=== PATIENT | male | born 1960 | race African-American/Black ===

== ENCOUNTER 2019-09-28 06:12 | Emergency (ER) | payer MEDICAID, OTHER ==
[~2019-09-28] VITALS: Ht 182.9 cm; Wt 118.0 kg
[~2019-09-28 06:12] MED LIST: GLIP5TAB12; LISI10TA5
[2019-09-28 06:15] VITALS: BP 154/107
== END 2019-09-28 07:57 | disposition left against medical advice (07) ==
LOC: ER 06:34
DX: Z53.21 Procedure and treatment not carried out due to patient leaving prior to being seen by health care provider (principal); E11.9 Type 2 diabetes mellitus without complications
CPT/HCPCS: 93005

== ENCOUNTER 2022-01-06 07:05 | Inpatient (IN) | payer MEDICAID, OTHER ==
[~2022-01-06] VITALS: Ht 180.3 cm; Wt 123.0 kg
[~2022-01-06 07:05] MED LIST changes: +LISI10TA26; -LISI10TA5
[2022-01-06] MEDS ORDERED: FUROSEMIDE 40MG/4ML VIAL IVP ONE (08:30)
[2022-01-06 09:05] LABS: BASOPHILS % 0.2 % (0.0-2.0); EOSINOPHILS % 0.9 % (0.0-5.0); HEMATOCRIT. 40.9 % (42.0-52.0); HEMOGLOBIN. 13.3 g/dL (14.0-18.0); LYMPHOCYTES % 24.9 % (20.0-50.0); MEAN CORPUSCULAR HEMOGLOBIN 31.1 pg (28.0-32.0); MEAN CORPUSCULAR VOLUME 95.6 fL (80.0-94.0); MEAN PLATELET VOLUME 9.4 fl (7.4-10.4); MONOCYTES % 13.7 % (2.0-8.0); NEUTROPHILS % 60.3 % (40.0-76.0); PLATELET 224 x1000/uL (130-400); RED BLOOD CELL COUNT 4.28 mill/uL (4.7-6.1); RED CELL DISTRIBUTION WIDTH 16.6 % (11.6-14.6)
[2022-01-06 09:13] LABS: INR 1.1; PROTHROMBIN TIME 11.5 sec (9.6-11.0)
[2022-01-06 09:17] LABS: CHLORIDE 103 mEq/L (98-107)
[2022-01-06] MEDS ORDERED: LISINOPRIL 10MG TABLET PO ONE (09:30)
[2022-01-06] MEDS ORDERED: ASPIRIN 325MG TABLET PO ONE (09:45)
[2022-01-06] MEDS ORDERED: HEPARIN 25,000 UNITS PREMIX 250 ML IV ONE (09:45)
[2022-01-06] MEDS ORDERED: HEPARIN 5000 UNITS/ML VIAL IV ONE (09:45)
[2022-01-06] MEDS ORDERED: NITROGLYCERIN 0.4MG TABLET SL SL PRN (09:45)
[2022-01-06] MEDS ORDERED: HEPARIN BOLUS PRN aPTT 30-44 IV (10:45)
[2022-01-06] MEDS ORDERED: HEPARIN BOLUS PRN aPTT <30 IV (10:45)
[2022-01-06] MEDS ORDERED: HEPARIN 25,000 UNITS PREMIX 250 ML IV SCH (10:45)
[2022-01-06 14:55] VITALS: BP 146/102
[2022-01-06 15:00] VITALS: BP 146/102
[2022-01-06] MEDS ORDERED: CLOP-31 PO (15:17)
[2022-01-06] MEDS ORDERED: FURO-151 PO (15:17)
[2022-01-06] MEDS ORDERED: ATOR10TA PO (15:17)
[2022-01-06] MEDS ORDERED: POTA-202 MT ×2 (15:17→15:19)
[2022-01-06] MEDS ORDERED: DEXTROSE 50% WATER 50ML SYRINGE IV PRN ×2 (15:45→20:00)
[2022-01-06] MEDS ORDERED: INFLUENZA VACCINE 05/PF 0.5 ML SYRINGE IM ONE (16:15)
[2022-01-06 16:30] VITALS: BP 129/84
[2022-01-06] MEDS: INSULIN LISPRO 100 UNITS/ML SUBCUT SCH ×2 (17:00→21:44)
[2022-01-06] MEDS: BLOOD SUGAR DIAGNOSTIC STRIP TEST SCH ×2 (17:00→21:45)
[2022-01-06] MEDS: FUROSEMIDE 40MG/4ML VIAL IVP SCH (17:50)
[2022-01-06 20:00] VITALS: BP 132/80
[2022-01-06] MEDS ORDERED: MAGNESIUM/ALUMINUM HYDROXIDE/SIMETHICONE 30ML UDC PO PRN (20:00)
[2022-01-06] MEDS ORDERED: ACETAMINOPHEN 325MG TABLET PO PRN (20:00)
[2022-01-06] MEDS ORDERED: ONDANSETRON HCL 4MG/2ML INJ IV PRN (20:00)
[2022-01-06] MEDS ORDERED: BLOOD SUGAR DIAGNOSTIC STRIP TEST SCH (21:00)
[2022-01-06] MEDS: ENOXAPARIN 30MG/0.3ML SYR SUBCUT SCH (21:43)
[2022-01-06] MEDS: CARVEDILOL 6.25 MG TABLET PO SCH (21:45)
[2022-01-06 23:20] LABS: CLARITY URINE CLEAR (CLEAR); COLOR URINE YELLOW (YELLOW); KETONES URINE NEGATIVE (NEGATIVE); LEUKOCYTE ESTERASE URINE NEGATIVE (NEGATIVE); NITRITE URINE NEGATIVE (NEGATIVE); OCCULT BLOOD URINE 2+ (NEGATIVE); PH URINE 5.5 (4.5-8.0); PROTEIN URINE 2+ (NEGATIVE); SPECIFIC GRAVITY URINE 1.012 (1.005-1.030)
[2022-01-06 23:44] LABS: *AMPHETAMINES SCREEN URINE NEGATIVE (NEGATIVE); *BARBITURATES SCREEN URINE NEGATIVE (NEGATIVE); *BENZODIAZEPINES SCREEN URINE NEGATIVE (NEGATIVE); *COCAINE SCREEN URINE NEGATIVE (NEGATIVE); CANNABINOID URINE SCREEN NEGATIVE (NEGATIVE); METHADONE URINE SCREEN NEGATIVE (NEGATIVE); OPIATES URINE SCREEN NEGATIVE (NEGATIVE); PHENCYCLIDINE URINE SCREEN NEGATIVE (NEGATIVE)
[2022-01-07] VITALS: BP 107/69
[2022-01-07] MEDS: ZOLPIDEM TARTRATE 5MG TABLET PO PRN (01:48)
[2022-01-07 04:00] VITALS: BP 124/74
[2022-01-07] MEDS: FUROSEMIDE 40MG/4ML VIAL IVP SCH ×2 (06:21→17:47)
[2022-01-07] MEDS: BLOOD SUGAR DIAGNOSTIC STRIP TEST SCH ×4 (06:28→21:05)
[2022-01-07] MEDS: INSULIN LISPRO 100 UNITS/ML SUBCUT SCH ×4 (06:29→21:14)
[2022-01-07 08:00] VITALS: BP 142/91
[2022-01-07 08:28] LABS: BASOPHILS % 0.3 % (0.0-2.0); EOSINOPHILS % 1.3 % (0.0-5.0); HEMATOCRIT. 40.1 % (42.0-52.0); HEMOGLOBIN. 13.2 g/dL (14.0-18.0); LYMPHOCYTES % 27.7 % (20.0-50.0); MEAN CORPUSCULAR VOLUME 94.4 fL (80.0-94.0); MEAN PLATELET VOLUME 9.1 fl (7.4-10.4); MONOCYTES % 14.8 % (2.0-8.0); NEUTROPHILS % 55.9 % (40.0-76.0); PLATELET 224 x1000/uL (130-400); RED BLOOD CELL COUNT 4.25 mill/uL (4.7-6.1); RED CELL DISTRIBUTION WIDTH 16.5 % (11.6-14.6)
[2022-01-07 08:45] LABS: CHLORIDE 102 mEq/L (98-107)
[2022-01-07 09:04] LABS: HDL CHOLESTEROL 60 mg/dL (40-59); LDL CHOLESTEROL 80 mg/dL (5-100); PHOSPHORUS 3.9 mg/dL (2.5-4.9); T4 FREE 1.53 ng/dL (0.76-1.46)
[2022-01-07] MEDS: CLOPIDOGREL 75MG TABLET PO SCH (09:21)
[2022-01-07] MEDS: ENOXAPARIN 30MG/0.3ML SYR SUBCUT SCH ×2 (09:21→21:18)
[2022-01-07] MEDS: CARVEDILOL 6.25 MG TABLET PO SCH ×2 (09:21→21:00)
[2022-01-07 12:30] VITALS: BP 155/104
[2022-01-07 16:30] VITALS: BP 126/96
[2022-01-07] MEDS: LISINOPRIL 2.5MG TABLET PO SCH (17:47)
[2022-01-07 20:00] VITALS: BP 110/65
[2022-01-08] VITALS: BP 121/75
[2022-01-08] MEDS: ZOLPIDEM TARTRATE 5MG TABLET PO PRN ×2 (00:04→21:46)
[2022-01-08 04:00] VITALS: BP 123/84
[2022-01-08] MEDS: FUROSEMIDE 40MG/4ML VIAL IVP SCH ×2 (06:41→17:49)
[2022-01-08] MEDS: INSULIN LISPRO 100 UNITS/ML SUBCUT SCH ×4 (06:46→21:40)
[2022-01-08 07:26] LABS: HEMATOCRIT. 36.8 % (42.0-52.0); HEMOGLOBIN. 12.1 g/dL (14.0-18.0); MEAN PLATELET VOLUME 9.2 fl (7.4-10.4); PLATELET 227 x1000/uL (130-400); RED BLOOD CELL COUNT 3.91 mill/uL (4.7-6.1); RED CELL DISTRIBUTION WIDTH 16.4 % (11.6-14.6)
[2022-01-08] MEDS: BLOOD SUGAR DIAGNOSTIC STRIP TEST SCH ×4 (07:26→21:40)
[2022-01-08 08:00] VITALS: BP 128/78
[2022-01-08 09:04] LABS: PLATELET ESTIMATE NORMAL
[2022-01-08] MEDS: LISINOPRIL 2.5MG TABLET PO SCH (09:04)
[2022-01-08] MEDS: CARVEDILOL 6.25 MG TABLET PO SCH ×2 (09:04→21:39)
[2022-01-08] MEDS: CLOPIDOGREL 75MG TABLET PO SCH ×2 (09:04→13:19)
[2022-01-08] MEDS: ENOXAPARIN 30MG/0.3ML SYR SUBCUT SCH ×2 (09:05→21:39)
[2022-01-08 09:34] LABS: CHLORIDE 101 mEq/L (98-107)
[2022-01-08 10:01] LABS: PHOSPHORUS 3.9 mg/dL (2.5-4.9)
[2022-01-08 12:00] VITALS: BP 137/90
[2022-01-08 16:30] VITALS: BP 136/73
[2022-01-08 20:00] VITALS: BP 132/82
[2022-01-09] VITALS: BP 128/77
[2022-01-09 04:00] VITALS: BP 122/81
[2022-01-09] MEDS: BLOOD SUGAR DIAGNOSTIC STRIP TEST SCH ×2 (06:12→11:27)
[2022-01-09] MEDS: INSULIN LISPRO 100 UNITS/ML SUBCUT SCH ×2 (06:12→12:28)
[2022-01-09] MEDS: FUROSEMIDE 40MG/4ML VIAL IVP SCH (06:12)
[2022-01-09 08:00] VITALS: BP 126/79
[2022-01-09] MEDS: CLOPIDOGREL 75MG TABLET PO SCH (08:19)
[2022-01-09] MEDS: CARVEDILOL 6.25 MG TABLET PO SCH (08:19)
[2022-01-09] MEDS: ENOXAPARIN 30MG/0.3ML SYR SUBCUT SCH (08:25)
[2022-01-09] MEDS ORDERED: LISINOPRIL 2.5MG TABLET PO SCH (09:00)
[2022-01-09 10:10] VITALS: BP 126/79
[2022-01-09 12:00] VITALS: BP 121/68
== END 2022-01-09 15:00 | disposition home or self-care (01) | DRG 198 ==
LOC: ER 07:05 → 8WST 11:17 → EDBEDREQTM 11:19 → EDBEDREQ 11:19 → EDBEDREQTM 11:22 → ENRESERV 11:59 → 8WST 14:28
PROVIDERS: ADMIT Internal Medicine; ATTEND Internal Medicine
DX: I25.10 Atherosclerotic heart disease of native coronary artery without angina pectoris (principal); I50.43 Acute on chronic combined systolic (congestive) and diastolic (congestive) heart failure; I42.9 Cardiomyopathy, unspecified; I50.9 Heart failure, unspecified; I11.0 Hypertensive heart disease with heart failure; R07.89 Other chest pain; E11.9 Type 2 diabetes mellitus without complications; F17.210 Nicotine dependence, cigarettes, uncomplicated; J44.9 Chronic obstructive pulmonary disease, unspecified; R74.01 Elevation of levels of liver transaminase levels; E66.01 Morbid (severe) obesity due to excess calories; K80.20 Calculus of gallbladder without cholecystitis without obstruction; I34.0 Nonrheumatic mitral (valve) insufficiency; Z86.16 Personal history of COVID-19; Z95.5 Presence of coronary angioplasty implant and graft; I25.2 Old myocardial infarction
CPT/HCPCS: 36415; 71045; 76700; 80048; 80053; 80061; 80076; 80305; 81003; 82962; 83036; 83735; 83880; 84100; 84439; 84443; 84484; 85025; 93005; 93306; 93923; 93970; 97162; 99291; J1644; J1650; J1815; J1940

== ENCOUNTER 2022-04-12 23:35 | Inpatient (IN) | payer MEDICAID ==
[~2022-04-12] VITALS: Ht 185.4 cm; Wt 125.6 kg
[~2022-04-12 23:35] MED LIST changes: +ATOR10TA PO; +CLOP-31 PO; +FURO-151 PO; +POTA-202 MT
[2022-04-13] MEDS ORDERED: ASPIRIN 81MG TABLET PO ONE (01:00)
[2022-04-13] MEDS ORDERED: FUROSEMIDE 40MG/4ML VIAL IV ONE (01:00)
[2022-04-13] MEDS ORDERED: NITROGLYCERIN OINT 1GM/INCH UDPKT TD ONE (01:00)
[2022-04-13 01:42] LABS: BASOPHILS % 0.4 % (0.0-2.0); EOSINOPHILS % 0.4 % (0.0-5.0); HEMATOCRIT. 36.3 % (42.0-52.0); HEMOGLOBIN. 11.5 g/dL (14.0-18.0); LYMPHOCYTES % 12.9 % (20.0-50.0); MEAN CORPUSCULAR VOLUME 82.2 fL (80.0-94.0); MEAN PLATELET VOLUME 8.4 fl (7.4-10.4); MONOCYTES % 13.6 % (2.0-8.0); NEUTROPHILS % 72.7 % (40.0-76.0); PLATELET 336 x1000/uL (130-400); RED BLOOD CELL COUNT 4.42 mill/uL (4.7-6.1); RED CELL DISTRIBUTION WIDTH 19.8 % (11.6-14.6)
[2022-04-13 02:40] LABS: CHLORIDE 101 mEq/L (98-107)
[2022-04-13 20:20] VITALS: BP 150/93
[2022-04-13] MEDS ORDERED: TIOT18CA3 IH (22:24)
[2022-04-13] MEDS ORDERED: ASPI-1406 PO (22:24)
[2022-04-13] MEDS ORDERED: SACU1TAB PO (22:24)
[2022-04-13] MEDS ORDERED: FURO40TA5 PO (22:24)
[2022-04-13] MEDS ORDERED: ATOR40TA70 PO (22:24)
[2022-04-13] MEDS ORDERED: METF-416 PO (22:24)
[2022-04-13] MEDS ORDERED: CARV6.2548 PO (22:24)
[2022-04-13] MEDS ORDERED: CLOP75TA33 PO (22:24)
[2022-04-13] MEDS ORDERED: CLONIDINE 0.1MG TABLET PO PRN (22:30)
[2022-04-13] MEDS ORDERED: ACETAMINOPHEN 325MG TABLET PO PRN (22:30)
[2022-04-13] MEDS ORDERED: ONDANSETRON HCL 4MG/2ML INJ IV PRN (22:30)
[2022-04-13] MEDS ORDERED: HYDROCODONE/ACETAMINOPHEN 5/325MG TABLET PO PRN (22:30)
[2022-04-13] MEDS ORDERED: DEXTROSE 50% WATER 50ML SYRINGE IV PRN (22:30)
[2022-04-13] MEDS ORDERED: NALOXONE HCL 0.4MG/ML VIAL IV PRN (23:00)
[2022-04-14] VITALS: BP 145/94
[2022-04-14 04:00] VITALS: BP 122/72
[2022-04-14 05:55] LABS: HEMATOCRIT. 29.6 % (42.0-52.0); HEMOGLOBIN. 9.5 g/dL (14.0-18.0); MEAN CORPUSCULAR HEMOGLOBIN 26.3 pg (28.0-32.0); MEAN CORPUSCULAR VOLUME 82.5 fL (80.0-94.0); MEAN PLATELET VOLUME 8.1 fl (7.4-10.4); PLATELET 275 x1000/uL (130-400); RED BLOOD CELL COUNT 3.59 mill/uL (4.7-6.1); RED CELL DISTRIBUTION WIDTH 19.1 % (11.6-14.6)
[2022-04-14] MEDS ORDERED: FUROSEMIDE 40MG/4ML VIAL IVP SCH (06:00)
[2022-04-14] MEDS: HYDRALAZINE HCL 50MG TABLET PO SCH ×3 (06:36→20:51)
[2022-04-14] MEDS: BLOOD SUGAR DIAGNOSTIC STRIP TEST SCH ×4 (07:02→20:51)
[2022-04-14 08:00] VITALS: BP 158/101
[2022-04-14] MEDS: INSULIN LISPRO 100 UNITS/ML SUBCUT SCH ×4 (08:20→20:59)
[2022-04-14 08:34] LABS: CHLORIDE 102 mEq/L (98-107)
[2022-04-14] MEDS: ATORVASTATIN CALCIUM 40MG TABLET PO SCH (08:58)
[2022-04-14] MEDS: CLOPIDOGREL 75MG TABLET PO SCH (08:58)
[2022-04-14] MEDS: CARVEDILOL 6.25 MG TABLET PO SCH ×2 (08:58→20:51)
[2022-04-14] MEDS: ASPIRIN 81MG EC TABLET PO SCH (08:58)
[2022-04-14] MEDS: ENOXAPARIN 30MG/0.3ML SYR SUBCUT SCH ×2 (08:59→20:59)
[2022-04-14] MEDS ORDERED: MEDICATION NOT ON FORMULARY EA (Sacubitril/Valsartan (Entresto 24 mg-26 mg Tablet) 1 TAB PO SCH (09:00)
[2022-04-14] MEDS ORDERED: METOLAZONE 2.5MG TABLET PO NR (11:30)
[2022-04-14 11:47] VITALS: BP 144/88
[2022-04-14 13:10] LABS: PLATELET ESTIMATE NORMAL
[2022-04-14] MEDS: LOSARTAN POTASSIUM 25 MG TABLET PO SCH (14:26)
[2022-04-14 16:00] VITALS: BP 144/87
[2022-04-14] MEDS: FUROSEMIDE 40MG TABLET PO SCH (17:42)
[2022-04-14] MEDS: SACUBITRIL/VALSARTAN 24MG/26MG TABLET PO SCH (17:42)
[2022-04-14 20:00] VITALS: BP 129/76
[2022-04-14] MEDS ORDERED: GUAIFENESIN-DM 200MG-20MG/10ML UDC PO PRN (21:30)
[2022-04-15] VITALS: BP 107/71
[2022-04-15 04:00] VITALS: BP 122/76
[2022-04-15] MEDS: HYDRALAZINE HCL 50MG TABLET PO SCH ×2 (05:27→14:06)
[2022-04-15] MEDS: BLOOD SUGAR DIAGNOSTIC STRIP TEST SCH ×2 (06:26→12:40)
[2022-04-15 07:22] LABS: CHLORIDE 104 mEq/L (98-107)
[2022-04-15 08:00] VITALS: BP 104/65
[2022-04-15] MEDS: INSULIN LISPRO 100 UNITS/ML SUBCUT SCH ×2 (08:10→14:07)
[2022-04-15] MEDS: CLOPIDOGREL 75MG TABLET PO SCH (08:21)
[2022-04-15] MEDS: ENOXAPARIN 30MG/0.3ML SYR SUBCUT SCH (08:21)
[2022-04-15] MEDS: ASPIRIN 81MG EC TABLET PO SCH (08:21)
[2022-04-15] MEDS: FUROSEMIDE 40MG TABLET PO SCH (08:21)
[2022-04-15] MEDS: LOSARTAN POTASSIUM 25 MG TABLET PO SCH (08:22)
[2022-04-15] MEDS: CARVEDILOL 6.25 MG TABLET PO SCH (08:22)
[2022-04-15] MEDS: SACUBITRIL/VALSARTAN 24MG/26MG TABLET PO SCH (08:29)
[2022-04-15] MEDS: ATORVASTATIN CALCIUM 40MG TABLET PO SCH (08:29)
[2022-04-15 12:00] VITALS: BP 118/68
[2022-04-15] MEDS ORDERED: METOLAZONE 2.5MG TABLET PO NR (12:15)
[2022-04-15] MEDS ORDERED: CARVEDILOL 12.5MG TABLET PO SCH (21:00)
[2022-04-16] MEDS ORDERED: LOSARTAN POTASSIUM 25 MG TABLET PO SCH (09:00)
== END 2022-04-15 14:44 | disposition left against medical advice (07) | DRG 194 ==
LOC: ER 23:35 → MICUSO 04-13 04:40 → EDBEDREQ 04-13 06:20 → EDBEDREQTM 04-13 06:20 → 7WST 04-13 19:57
PROVIDERS: ADMIT Internal Medicine; ATTEND Internal Medicine
DX: I11.0 Hypertensive heart disease with heart failure (principal); N17.0 Acute kidney failure with tubular necrosis; E44.0 Moderate protein-calorie malnutrition; I27.20 Pulmonary hypertension, unspecified; E87.1 Hypo-osmolality and hyponatremia; D64.9 Anemia, unspecified; E11.9 Type 2 diabetes mellitus without complications; I42.9 Cardiomyopathy, unspecified; I83.029 Varicose veins of left lower extremity with ulcer of unspecified site; I50.23 Acute on chronic systolic (congestive) heart failure; E66.9 Obesity, unspecified; E78.00 Pure hypercholesterolemia, unspecified; I34.0 Nonrheumatic mitral (valve) insufficiency; E78.5 Hyperlipidemia, unspecified; I25.10 Atherosclerotic heart disease of native coronary artery without angina pectoris; Z53.29 Procedure and treatment not carried out because of patient's decision for other reasons; I25.2 Old myocardial infarction; Z95.5 Presence of coronary angioplasty implant and graft; Z68.36 Body mass index [BMI] 36.0-36.9, adult
CPT/HCPCS: 36415; 71045; 80048; 80053; 82962; 83036; 83880; 84484; 85025; 93005; 93306; 93970; 99291; A6261; C1893; J1650; J1815; J1940

== ENCOUNTER 2022-04-30 05:10 | Inpatient (IN) | payer MEDICAID ==
[~2022-04-30] VITALS: Ht 182.9 cm; Wt 117.5 kg
[~2022-04-30 05:10] MED LIST changes: +ASPI-1406 PO; -ATOR10TA PO; +ATOR40TA70 PO; +CARV6.2548 PO; -CLOP-31 PO; +CLOP75TA33 PO; -FURO-151 PO; +FURO40TA5 PO; -GLIP5TAB12; -LISI10TA26; +METF-416 PO; -POTA-202 MT; +SACU1TAB PO; +TIOT18CA3 IH
[2022-04-30 06:12] LABS: BASOPHILS % 0.3 % (0.0-2.0); EOSINOPHILS % 0.6 % (0.0-5.0); HEMOGLOBIN. 9.1 g/dL (14.0-18.0); LYMPHOCYTES % 19.3 % (20.0-50.0); MEAN CORPUSCULAR HEMOGLOBIN 25.3 pg (28.0-32.0); MEAN CORPUSCULAR VOLUME 83.4 fL (80.0-94.0); MEAN PLATELET VOLUME 8.2 fl (7.4-10.4); MONOCYTES % 14.2 % (2.0-8.0); NEUTROPHILS % 65.6 % (40.0-76.0); PLATELET 256 x1000/uL (130-400); RED CELL DISTRIBUTION WIDTH 20.9 % (11.6-14.6)
[2022-04-30] MEDS ORDERED: FUROSEMIDE 100MG/10ML VIAL IVP ONE (06:15)
[2022-04-30 06:20] LABS: CHLORIDE 104 mEq/L (98-107)
[2022-04-30 09:33] LABS: CLARITY URINE CLEAR (CLEAR); COLOR URINE YELLOW (YELLOW); KETONES URINE NEGATIVE (NEGATIVE); LEUKOCYTE ESTERASE URINE NEGATIVE (NEGATIVE); NITRITE URINE NEGATIVE (NEGATIVE); OCCULT BLOOD URINE NEGATIVE (NEGATIVE); PH URINE 6.5 (4.5-8.0); PROTEIN URINE NEGATIVE (NEGATIVE); SPECIFIC GRAVITY URINE 1.011 (1.005-1.030)
[2022-04-30] MEDS ORDERED: LISI20TA31 MT (15:43)
[2022-04-30 16:10] VITALS: BP 155/88
[2022-04-30] MEDS ORDERED: ONDANSETRON HCL 4MG TABLET PO PRN (16:15)
[2022-04-30] MEDS ORDERED: CARVEDILOL 6.25 MG TABLET PO ONE (17:00)
[2022-04-30] MEDS: FUROSEMIDE 40MG/4ML VIAL IVP SCH (17:11)
[2022-04-30] MEDS: AMLODIPINE 10MG TABLET PO SCH (17:11)
[2022-04-30] MEDS ORDERED: ENOXAPARIN 30MG/0.3ML SYR SUBCUT SCH (18:00)
[2022-04-30 19:35] VITALS: BP 130/82
[2022-04-30] MEDS: CARVEDILOL 6.25 MG TABLET PO SCH (20:37)
[2022-04-30] MEDS: ZOLPIDEM TARTRATE 5MG TABLET PO PRN (20:37)
[2022-04-30] MEDS ORDERED: METOLAZONE 2.5MG TABLET PO NR (21:00)
[2022-04-30] MEDS ORDERED: DEXTROSE 50% WATER 50ML SYRINGE IV PRN (21:00)
[2022-04-30] MEDS: BLOOD SUGAR DIAGNOSTIC STRIP TEST SCH (21:00)
[2022-04-30] MEDS: INSULIN LISPRO 100 UNITS/ML SUBCUT SCH (21:40)
[2022-05-01 00:30] VITALS: BP 103/63
[2022-05-01 04:00] VITALS: BP 94/44
[2022-05-01] MEDS: FUROSEMIDE 40MG/4ML VIAL IVP SCH (05:53)
[2022-05-01 06:45] LABS: HEMATOCRIT 28.6 % (42.0-52.0); MEAN CORPUSCULAR HEMOGLOBIN 25.6 pg (28.0-32.0); MEAN CORPUSCULAR VOLUME 81.7 fL (80.0-94.0); PLATELET 243 x1000/uL (130-400); RED BLOOD CELL COUNT 3.51 mill/uL (4.7-6.1); RED CELL DISTRIBUTION WIDTH 20.2 % (11.6-14.6)
[2022-05-01] MEDS: BLOOD SUGAR DIAGNOSTIC STRIP TEST SCH ×4 (06:46→20:38)
[2022-05-01] MEDS: INSULIN LISPRO 100 UNITS/ML SUBCUT SCH ×4 (08:10→20:53)
[2022-05-01 08:19] VITALS: BP 115/73
[2022-05-01] MEDS: AMLODIPINE 10MG TABLET PO SCH (09:08)
[2022-05-01] MEDS: LOSARTAN POTASSIUM 25 MG TABLET PO SCH (09:08)
[2022-05-01] MEDS: CARVEDILOL 6.25 MG TABLET PO SCH ×2 (09:09→20:53)
[2022-05-01 11:41] VITALS: BP 135/94
[2022-05-01] MEDS ORDERED: METOLAZONE 2.5MG TABLET PO NR (15:00)
[2022-05-01 15:38] VITALS: BP 112/79
[2022-05-01] MEDS: FUROSEMIDE 100MG/10ML VIAL IVP SCH (16:57)
[2022-05-01 20:00] LABS: HEPATITIS B SURFACE ANTIGEN NEGATIVE
[2022-05-01 20:30] VITALS: BP 119/73
[2022-05-01] MEDS: ZOLPIDEM TARTRATE 5MG TABLET PO PRN (20:53)
[2022-05-02] VITALS: BP 125/60
[2022-05-02 04:30] VITALS: BP 100/66
[2022-05-02] MEDS: BLOOD SUGAR DIAGNOSTIC STRIP TEST SCH ×4 (07:22→20:51)
[2022-05-02 08:00] VITALS: BP 116/81
[2022-05-02] MEDS: LOSARTAN POTASSIUM 25 MG TABLET PO SCH (08:28)
[2022-05-02] MEDS: FUROSEMIDE 100MG/10ML VIAL IVP SCH ×2 (08:28→18:42)
[2022-05-02] MEDS: METOLAZONE 2.5MG TABLET PO SCH (08:28)
[2022-05-02] MEDS: CARVEDILOL 6.25 MG TABLET PO SCH (08:29)
[2022-05-02] MEDS: AMLODIPINE 10MG TABLET PO SCH (08:29)
[2022-05-02] MEDS: INSULIN LISPRO 100 UNITS/ML SUBCUT SCH ×4 (08:30→20:57)
[2022-05-02 12:00] VITALS: BP 103/58
[2022-05-02 16:00] VITALS: BP 96/62
[2022-05-02 20:20] VITALS: BP 111/70
[2022-05-02] MEDS: ZOLPIDEM TARTRATE 5MG TABLET PO PRN (20:57)
[2022-05-02] MEDS: CARVEDILOL 12.5MG TABLET PO SCH (20:57)
[2022-05-03] VITALS: BP 96/48
[2022-05-03 04:30] VITALS: BP 111/57
[2022-05-03] MEDS: BLOOD SUGAR DIAGNOSTIC STRIP TEST SCH ×4 (06:35→21:00)
[2022-05-03 08:00] VITALS: BP_SYST 115; BP_SYST 145; BP_DIAS 62; BP_DIAS 78
[2022-05-03] MEDS: METOLAZONE 2.5MG TABLET PO SCH (09:35)
[2022-05-03] MEDS: LOSARTAN POTASSIUM 50 MG TABLET PO SCH (09:36)
[2022-05-03] MEDS: CARVEDILOL 12.5MG TABLET PO SCH ×2 (09:36→21:45)
[2022-05-03] MEDS: FUROSEMIDE 100MG/10ML VIAL IVP SCH ×2 (09:38→18:28)
[2022-05-03] MEDS: INSULIN LISPRO 100 UNITS/ML SUBCUT SCH ×4 (09:38→21:40)
[2022-05-03 12:00] VITALS: BP 112/66
[2022-05-03 16:00] VITALS: BP 110/63
[2022-05-03 20:00] VITALS: BP 93/84
[2022-05-03] MEDS: INSULIN GLARGINE 100 UNITS/ML SUBCUT SCH (21:44)
[2022-05-03] MEDS: ZOLPIDEM TARTRATE 5MG TABLET PO PRN (21:45)
[2022-05-04] VITALS: BP 100/64
[2022-05-04 04:00] VITALS: BP 98/67
[2022-05-04] MEDS: BLOOD SUGAR DIAGNOSTIC STRIP TEST SCH ×4 (07:40→21:00)
[2022-05-04 08:00] VITALS: BP 100/63
[2022-05-04] MEDS: LOSARTAN POTASSIUM 50 MG TABLET PO SCH (09:00)
[2022-05-04] MEDS: CARVEDILOL 12.5MG TABLET PO SCH ×2 (09:00→21:00)
[2022-05-04] MEDS: INSULIN GLARGINE 100 UNITS/ML SUBCUT SCH ×2 (10:00→21:56)
[2022-05-04] MEDS: FUROSEMIDE 100MG/10ML VIAL IVP SCH ×2 (10:19→17:00)
[2022-05-04] MEDS: METOLAZONE 2.5MG TABLET PO SCH (10:19)
[2022-05-04] MEDS: INSULIN LISPRO 100 UNITS/ML SUBCUT SCH ×4 (10:30→21:00)
[2022-05-04 12:00] VITALS: BP 118/76
[2022-05-04 16:00] VITALS: BP 115/74
[2022-05-04 20:00] VITALS: BP 108/66
[2022-05-05] VITALS: BP 103/49
[2022-05-05] MEDS: ACETAMINOPHEN 325MG TABLET PO PRN ×2 (03:58→21:02)
[2022-05-05 04:00] VITALS: BP 95/50
[2022-05-05] MEDS: BLOOD SUGAR DIAGNOSTIC STRIP TEST SCH ×4 (07:50→20:27)
[2022-05-05 08:00] VITALS: BP 109/65
[2022-05-05] MEDS: CARVEDILOL 12.5MG TABLET PO SCH ×2 (09:00→20:25)
[2022-05-05] MEDS: LOSARTAN POTASSIUM 50 MG TABLET PO SCH (09:00)
[2022-05-05] MEDS: FUROSEMIDE 100MG/10ML VIAL IVP SCH ×2 (09:33→18:22)
[2022-05-05] MEDS: METOLAZONE 2.5MG TABLET PO SCH (09:33)
[2022-05-05] MEDS: INSULIN LISPRO 100 UNITS/ML SUBCUT SCH ×4 (09:35→21:04)
[2022-05-05] MEDS: INSULIN GLARGINE 100 UNITS/ML SUBCUT SCH ×2 (09:36→21:04)
[2022-05-05 12:00] VITALS: BP 111/65
[2022-05-05 16:00] VITALS: BP 120/74
[2022-05-05 20:00] VITALS: BP 107/55
[2022-05-05] MEDS ORDERED: ZOLPIDEM TARTRATE 5MG TABLET PO PRN (21:15)
[2022-05-06] VITALS: BP 105/52
[2022-05-06 04:00] VITALS: BP 108/70
[2022-05-06] MEDS: BLOOD SUGAR DIAGNOSTIC STRIP TEST SCH ×2 (06:40→13:39)
[2022-05-06] MEDS: INSULIN LISPRO 100 UNITS/ML SUBCUT SCH ×2 (07:56→13:10)
[2022-05-06 08:00] VITALS: BP 113/75
[2022-05-06] MEDS: LOSARTAN POTASSIUM 50 MG TABLET PO SCH (09:11)
[2022-05-06] MEDS: METOLAZONE 2.5MG TABLET PO SCH (09:11)
[2022-05-06] MEDS: FUROSEMIDE 100MG/10ML VIAL IVP SCH (09:11)
[2022-05-06] MEDS: CARVEDILOL 12.5MG TABLET PO SCH (09:13)
[2022-05-06] MEDS: INSULIN GLARGINE 100 UNITS/ML SUBCUT SCH (09:27)
[2022-05-06] MEDS ORDERED: METO2.5T2 PO (11:33)
[2022-05-06] MEDS ORDERED: COR12 PO (11:33)
[2022-05-06] MEDS ORDERED: FURO40TA5 PO (11:33)
[2022-05-06] MEDS ORDERED: INSU100I24 SQ (11:33)
[2022-05-06] MEDS ORDERED: LOSA50TA3 PO (11:33)
[2022-05-06 12:00] VITALS: BP 113/55
[2022-05-06 13:30] VITALS: BP 113/55
== END 2022-05-06 15:15 | disposition home health service (06) | DRG 194 ==
LOC: ER 05:10 → 7WST 06:53
PROVIDERS: ADMIT Internal Medicine; ATTEND Internal Medicine
DX: I11.0 Hypertensive heart disease with heart failure (principal); I27.20 Pulmonary hypertension, unspecified; I42.9 Cardiomyopathy, unspecified; I50.23 Acute on chronic systolic (congestive) heart failure; J44.9 Chronic obstructive pulmonary disease, unspecified; Z20.822 Contact with and (suspected) exposure to COVID-19; M48.00 Spinal stenosis, site unspecified; E11.9 Type 2 diabetes mellitus without complications; E78.00 Pure hypercholesterolemia, unspecified; E66.01 Morbid (severe) obesity due to excess calories; I25.10 Atherosclerotic heart disease of native coronary artery without angina pectoris; F17.200 Nicotine dependence, unspecified, uncomplicated; Z95.5 Presence of coronary angioplasty implant and graft; Z83.3 Family history of diabetes mellitus; Z79.899 Other long term (current) drug therapy; Z68.35 Body mass index [BMI] 35.0-35.9, adult
CPT/HCPCS: 36415; 71045; 72141; 72146; 72148; 80048; 80053; 81003; 82962; 83735; 83880; 84145; 84484; 85025; 85027; 86803; 87340; 87426; 87804; 97116; 97162; 99285; C9803; J1650; J1815; J1940

== ENCOUNTER 2022-05-12 06:16 | Emergency (ER) | payer MEDICAID ==
[~2022-05-12] VITALS: Ht 177.8 cm; Wt 118.0 kg
[~2022-05-12 06:16] MED LIST changes: -CARV6.2548 PO; +COR12 PO; +INSU100I24 SQ; +LOSA50TA3 PO; +METO2.5T2 PO; -SACU1TAB PO
[2022-05-12 06:17] VITALS: BP 100/66
== END 2022-05-12 11:19 | disposition left against medical advice (07) ==
LOC: ER 06:22
DX: Z20.822 Contact with and (suspected) exposure to COVID-19 (principal)
CPT/HCPCS: 99281; Z7610

== ENCOUNTER 2022-12-23 08:13 | Emergency (ER) | payer MEDICAID ==
[~2022-12-23] VITALS: Ht 177.8 cm; Wt 114.0 kg
[~2022-12-23 08:13] MED LIST changes: +LOSA-413 PO; -LOSA50TA3 PO
[2022-12-23 08:15] VITALS: BP 138/88; PULSE 90; RESP 16; TEMP 98.5; O2SAT 99
[2022-12-23] MEDS ORDERED: KETOROLAC 60MG/2ML VIAL IM STA (08:40)
[2022-12-23] MEDS ORDERED: METHOCARBAMOL 750MG TABLET PO SCH (08:45)
[2022-12-23 09:02] LABS: BASOPHILS % 0.3 % (0.0-2.0); EOSINOPHILS % 3.3 % (0.0-5.0); HEMATOCRIT. 39.3 % (42.0-52.0); HEMOGLOBIN. 12.7 g/dL (14.0-18.0); LYMPHOCYTES % 26.5 % (20.0-50.0); MEAN CORPUSCULAR HEMOGLOBIN 27.7 pg (28.0-32.0); MEAN CORPUSCULAR HGB CONC 32.3 g/dL (31.0-37.0); MEAN CORPUSCULAR VOLUME 85.8 fL (80.0-94.0); MEAN PLATELET VOLUME 8.6 fl (7.4-10.4); MONOCYTES % 11.1 % (2.0-8.0); NEUTROPHILS % 58.8 % (40.0-76.0); PLATELET 222 x1000/uL (130-400); RED BLOOD CELL COUNT 4.58 mill/uL (4.7-6.1); WHITE BLOOD COUNT 5.5 x1000/uL (4.5-11.0)
[2022-12-23 09:12] LABS: CHLORIDE 103 mEq/L (98-107); INDEX HEMOLYSI 1 (1-3); INDEX ICTERIC 1 (1-4); INDEX LIPEMIC 1 (1-3); POTASSIUM 4.5 mEq/L (3.5-5.1); SODIUM 135 mEq/L (136-145)
[2022-12-23 09:20] LABS: ALANINE AMINOTRANSFERASE 19 IU/L (13-61); ALBUMIN 3.3 g/dL (3.4-5.0); ASPARTATE AMINOTRANSFERASE 20 IU/L (15-37); BILIRUBIN TOTAL 0.6 mg/dL (0.1-1.0); CALCIUM 9.5 mg/dL (8.5-10.1); CARBON DIOXIDE 28 mEq/L (21-32); CREATININE 1.1 mg/dL (0.6-1.3); GLUCOSE 124 mg/dL (70-105); PROTEIN TOTAL 7.5 g/dL (6.0-8.3); UREA NITROGEN BLOOD 19 mg/dL (7-21)
[2022-12-23] MEDS ORDERED: METH-653 MT (09:57)
== END 2022-12-23 12:51 | disposition home or self-care (01) ==
LOC: ER 08:24
DX: M54.16 Radiculopathy, lumbar region (principal); I11.0 Hypertensive heart disease with heart failure; I50.9 Heart failure, unspecified; Z79.899 Other long term (current) drug therapy
CPT/HCPCS: 99284; 80053; 85025; 36415; 72100; 73560; 96372; J1885

== ENCOUNTER 2023-09-20 07:00 | Emergency (ER) | payer MEDICAID ==
[~2023-09-20] VITALS: Ht 185.4 cm; Wt 113.0 kg
[~2023-09-20 07:00] MED LIST changes: +METH-653 MT
[2023-09-20 07:14] VITALS: TEMP 98.7; O2SAT 100
[2023-09-20] MEDS: MORPHINE SULFATE 4 MG/ML INJ (FOR IV/IM USE) IV STA (07:47)
[2023-09-20 07:52] LABS: BASOPHILS % 0.4 % (0.0-2.0); EOSINOPHILS % 2.3 % (0.0-5.0); HEMATOCRIT. 37.7 % (42.0-52.0); HEMOGLOBIN. 12.5 g/dL (14.0-18.0); LYMPHOCYTES % 28.7 % (20.0-50.0); MEAN CORPUSCULAR HEMOGLOBIN 30.2 pg (28.0-32.0); MEAN CORPUSCULAR HGB CONC 33.3 g/dL (31.0-37.0); MEAN CORPUSCULAR VOLUME 90.8 fL (80.0-94.0); MEAN PLATELET VOLUME 9.3 fl (7.4-10.4); MONOCYTES % 13.3 % (2.0-8.0); NEUTROPHILS % 55.3 % (40.0-76.0); PLATELET 174 x1000/uL (130-400); RED BLOOD CELL COUNT 4.15 mill/uL (4.7-6.1); RED CELL DISTRIBUTION WIDTH 14.5 % (11.6-14.6); WHITE BLOOD COUNT 4.3 x1000/uL (4.5-11.0)
[2023-09-20 08:00] LABS: CHLORIDE 107 mEq/L (98-107); POTASSIUM 4.3 mEq/L (3.5-5.1); SODIUM 136 mEq/L (136-145)
[2023-09-20 08:01] LABS: CARBON DIOXIDE 25 mEq/L (21-32)
[2023-09-20 08:06] LABS: CREATININE 1.3 mg/dL (0.6-1.3); GLUCOSE 105 mg/dL (70-105); UREA NITROGEN BLOOD 15 mg/dL (9-23)
[2023-09-20 08:08] LABS: TROPONIN I HIGH SENSITIVITY 30 ng/L (3.0-53)
[2023-09-20] MEDS: FUROSEMIDE 40MG/4ML VIAL IVP NR (12:44)
[2023-09-20] MEDS: POTASSIUM CHLORIDE 20MEQ TABLET SR PO SCH (12:44)
[2023-09-20 12:53] VITALS: BP 160/103; PULSE 79; RESP 18
[2023-09-20] MEDS: AMLODIPINE 2.5MG TABLET PO SCH (13:46)
[2023-09-20] MEDS ORDERED: FUROSEMIDE 100MG/10ML VIAL IVP SCH (17:15)
== END 2023-09-20 14:15 | disposition short-term general hospital (02) ==
LOC: ER 07:00 → EDBEDREQ 09:40 → EDBEDREQTM 09:40 → CANBEDREQ 12:52 → ER 14:15
DX: R07.89 Other chest pain (principal); I11.0 Hypertensive heart disease with heart failure; I50.9 Heart failure, unspecified; I48.91 Unspecified atrial fibrillation; E11.9 Type 2 diabetes mellitus without complications; Z79.899 Other long term (current) drug therapy; Z79.82 Long term (current) use of aspirin; W18.2XXA Fall in (into) shower or empty bathtub, initial encounter; Y93.89 Activity, other specified; Y92.89 Other specified places as the place of occurrence of the external cause; Y99.8 Other external cause status
CPT/HCPCS: 80048; 83880; 85025; 84484; 36415; 73502; 71045; 93005; 96374; 96375; 99285; J1940; J2270; Z7610 ×4

== ENCOUNTER 2024-03-27 07:45 | Emergency (ER) | payer MEDICAID ==
[~2024-03-27] VITALS: Ht 177.8 cm; Wt 100.0 kg
[~2024-03-27 07:45] MED LIST changes: +SPIR25TA6 MT
[2024-03-27 07:47] VITALS: BP 149/80; PULSE 91; RESP 18; O2SAT 100
[2024-03-27 08:30] VITALS: TEMP 98.8
[2024-03-27] MEDS: ACETAMINOPHEN 325MG TABLET PO ONE (08:30)
[2024-03-27 09:39] LABS: BASOPHILS % 0.1 % (0.0-2.0); CHLORIDE 102 mEq/L (98-107); DIFFERENTIAL COMMENT 0; EOSINOPHILS % 0.6 % (0.0-5.0); HEMATOCRIT. 41.7 % (42.0-52.0); HEMOGLOBIN. 13.7 g/dL (14.0-18.0); LYMPHOCYTES % 11.7 % (20.0-50.0); MEAN CORPUSCULAR HGB CONC 32.9 g/dL (31.0-37.0); MEAN CORPUSCULAR VOLUME 100.3 fL (80.0-94.0); MEAN PLATELET VOLUME 9.1 fl (7.4-10.4); MONOCYTES % 13.3 % (2.0-8.0); NEUTROPHILS % 74.3 % (40.0-76.0); PLATELET 211 x1000/uL (130-400); POTASSIUM 4.3 mEq/L (3.5-5.1); RED BLOOD CELL COUNT 4.15 mill/uL (4.7-6.1); RED CELL DISTRIBUTION WIDTH 14.2 % (11.6-14.6); SODIUM 137 mEq/L (136-145); WHITE BLOOD COUNT 8.2 x1000/uL (4.5-11.0)
[2024-03-27 09:40] LABS: CARBON DIOXIDE 26 mEq/L (21-32)
[2024-03-27 09:45] LABS: CREATININE 1.3 mg/dL (0.6-1.3); GLUCOSE 165 mg/dL (70-105); TROPONIN I HIGH SENSITIVITY 32 ng/L (3.0-53)
[2024-03-27 09:46] LABS: UREA NITROGEN BLOOD 15 mg/dL (9-23)
[2024-03-27 09:47] LABS: ALANINE AMINOTRANSFERASE < 7 IU/L (10-49); ALBUMIN 3.7 g/dL (3.2-4.8); ASPARTATE AMINOTRANSFERASE 15 IU/L (<34)
[2024-03-27 09:48] LABS: BILIRUBIN DIRECT 0.3 mg/dL (<=3.0); BILIRUBIN TOTAL 0.8 mg/dL (0.1-1.0); PROTEIN TOTAL 7.5 g/dL (6.0-8.3)
[2024-03-27] MEDS ORDERED: ACETAMINOPHEN 325MG TABLET PO PRN (13:00)
[2024-03-27] MEDS ORDERED: DEXTROSE 50% WATER 50ML SYRINGE IV PRN (13:00)
[2024-03-27] MEDS ORDERED: BLOOD SUGAR DIAGNOSTIC STRIP TEST SCH (13:00)
[2024-03-27] MEDS ORDERED: ONDANSETRON HCL 4MG/2ML INJ IV PRN (13:00)
[2024-03-27] MEDS ORDERED: INSULIN LISPRO 100 UNITS/ML SUBCUT SCH (13:20)
[2024-03-27 15:16] LABS: THYROID STIMULATING HORMONE 2.04 uIU/mL (0.55-4.78)
== END 2024-03-27 17:34 | disposition left against medical advice (07) ==
LOC: ER 07:45 → EDBEDREQ 10:44 → EDBEDREQTM 10:44 → CANBEDREQ 17:33 → ER 17:34
DX: R06.02 Shortness of breath (principal); R07.9 Chest pain, unspecified; M25.551 Pain in right hip; E11.9 Type 2 diabetes mellitus without complications; I11.0 Hypertensive heart disease with heart failure; I50.22 Chronic systolic (congestive) heart failure; Z79.84 Long term (current) use of oral hypoglycemic drugs; Z79.82 Long term (current) use of aspirin; Z79.4 Long term (current) use of insulin; Z87.891 Personal history of nicotine dependence; Z79.02 Long term (current) use of antithrombotics/antiplatelets; Z20.822 Contact with and (suspected) exposure to COVID-19; Z79.899 Other long term (current) drug therapy; W01.0XXA Fall on same level from slipping, tripping and stumbling without subsequent striking against object, initial encounter; Y93.89 Activity, other specified; Y92.89 Other specified places as the place of occurrence of the external cause; Y99.8 Other external cause status
CPT/HCPCS: 80061; 80076; 80048; 83036; 84443; 85025; 84484; 87804 ×2; 36415; 73502; 71045; 93005; 99285; 87426; A4663; Z7610 ×2; A4606